=== PATIENT | female | born 1990 | race Caucasian/White ===

== ENCOUNTER → 2019-12-19 07:34 | Outpatient (CLI) | payer OTHER, SELFPAY ==
--- NOTE | 2019-12-19 | DI.MRI.S_ITS ---
PROCEDURE: MR KNEE RT WO CON INDICATIONS: Unspecified injury of unspecified lower leg TECHNIQUE: Noncontrast sagittal PD fast spin echo and T2 fast spin echo with fat saturation, sagittal 3-D FLASH with fat saturation; coronal T1 spin echo and PD fast spin echo with fat saturation, and axial PD fast spin echo with fat saturation through the knee. COMPARISON: None. FINDINGS: Image quality: Excellent. Menisci: Medial meniscus intact. Lateral meniscus intact. Cruciate ligaments: Anterior cruciate ligament appears intact. Posterior cruciate ligament appears intact. Medial structures: The medial collateral ligament appears intact. Semimembranosus tendon appears intact. Visualized portions of the pes anserinus tendons appear normal. No abnormal bursal fluid. Lateral structures: The lateral collateral ligament intact. Biceps femoris tendon appears intact. Popliteus tendon grossly unremarkable. Iliotibial band appears intact. Anterior structures: Quadriceps tendon intact. Medial and lateral patellofemoral ligaments intact. Patellar tendon appears intact. Hoffa's fat pad unremarkable. Bones and cartilage: Prominent marrow edema present within the posteromedial tibial plateau as well as the posterolateral tibial plateau. No discrete fracture line is seen. Within the medial compartment, no focal articular cartilage defect Within the lateral compartment, no focal cartilage defect . Within the patellofemoral compartment, no definite focal cartilage defect. Mild intrasubstance signal change of the patellar cartilage diffusely. Joint space: No pathologic joint effusion. No Sánchez's cyst. No specific evidence of intra-articular loose body. IMPRESSION: Severe marrow contusion involving the posteromedial tibial plateau Additional lesser marrow contusion of the posterolateral tibial plateau Elsewhere, no internal derangement seen. Dictated by: James Hooks M.D. on 12/19/2019 at 9:32 Approved by: James Hooks M.D. on 12/19/2019 at 9:39
== END ==
PROVIDERS: Family Provider Family Medicine; PCP Family Medicine; Referring Provider Family Medicine; Visit Provider Family Medicine
DX: S80.01XA Contusion of right knee, initial encounter (principal); X58.XXXA Exposure to other specified factors, initial encounter
CPT/HCPCS: 73721

== ENCOUNTER 2023-11-23 08:12 | Day surgery (SDC) | payer OTHER, SELFPAY ==
[2023-11-22 15:40] VITALS: BMI 24.5
[2023-11-23] VITALS (7 sets, daily range): BP systolic 99–135; BP diastolic 50–90; PULSE 68–104; RESP 12–17; TEMP 36.6; O2SAT 96–100; BMI 23.3
[2023-11-23] MEDS: ACETAMINOPHEN 325 MG TABLET 975 MG PO (08:46)
[2023-11-23] MEDS: LACTATED RINGERS 1,000 ML 42 ML IV ×2 (08:47→10:45)
--- NOTE | 2023-11-23 09:05 | PM.PREOP ---
Pre-operative Note COVID-19 COVID-19 status: Not tested Interval Note History & Physical reviewed/Exam performed by Physician: Yes Changes to H&P: No ASA Class (for procedural sedation): I
[2023-11-23] MEDS: CEFAZOLIN 2 GM/100 ML PREMIX 100 ML IV (09:32)
--- NOTE | 2023-11-23 09:41 | SUR.OPER ---
Supine on padded OR bed, head on pillow, arms secured on padded arm boards at <90 degrees abduction, legs uncrossed, safety belt at thigh, tape over blanket over lower legs.
[2023-11-23] MEDS: BUPIVACAINE 0.5% (PF) 30 ML, EPINEPHrine 0.15 MG INJ (09:44)
--- NOTE | 2023-11-23 10:21 | P.OP_ITS ---
Operative Date/Time/Diagnoses Date of procedure: 11/23/23 Time of procedure: 10:21 Pre-op diagnosis: Umbilical hernia Post-op diagnosis: same Procedure & Clinicians Procedure: Open umbilical hernia repair with mesh Same procedure as scheduled: Yes Surgeon: Nicolas Lopez Anesthesia Type: General Operative Notes Procedure in detail: Ancef was administered. The patient was brought to the operating room, placed on the table in the supine position and general anesthesia was induced. The abdomen was prepped and draped in the usual fashion. A time-out was performed. A 4 cm curvilinear incision was made inferior to the umbilicus. The hernia sac was dissected free from the surrounding subcutaneous adipose tissue. The sac was dissected off the umbilical stalk using a combination of cautery, sharp and blunt dissection. The hernia sac was dissected free from the fascial ring and allowed to drop back down into the abdomen. The fascia was then closed transversely with two interrupted 0 Ethibond sutures. The subcutaneous adipose tissue was cleared off of the anterior sheath circumferentially about 2 cm in each direction. A piece of polypropylene mesh was trimmed to fit over the fascial closure and secured with Tisseel. Once the Tisseel was dried the umb ilical skin was tacked down to the mesh with a single 3-0 Vicryl stitch. The skin was closed with multiple interrupted 3-0 Vicryl dermal sutures followed by a running 4 Monocryl subcuticular closure. Steri-Strips were applied and an abdominal binder was applied. Post-operative Condition: stable Disposition: PACU
== END 2023-11-23 11:35 | disposition home or self-care (01) ==
PROVIDERS: Family Provider Family Medicine; Referring Provider Surgery; Visit Provider Surgery
PROC: (CPT 49591; principal; 2023-11-23 09:45)
DX: K42.9 Umbilical hernia without obstruction or gangrene (principal)
CPT/HCPCS: 49591; 81025; J0171; J0330; J0690; J1100; J1885; J2250; J2405; J2704; J3010